=== PATIENT | female | born 1955 | race Caucasian/White ===

== ENCOUNTER → 2016-04-17 | Outpatient (CLI) | payer OTHER ==
[2016-04-17 15:51] VITALS: BP 162/80
== END ==
LOC: MHUC 10:31
PROVIDERS: ATTEND Physician Assistant
DX: J40 Bronchitis, not specified as acute or chronic (principal)
CPT/HCPCS: 99213

== ENCOUNTER → 2016-09-12 | Outpatient (CLI) | payer OTHER ==
[~2016-09-12] MED LIST: AGM500T PO; CYCL10TA45 PO; METH4TAB27 PO; ROSU10TA PO; SERT25TA PO
[2016-09-12 14:44] VITALS: BP 159/82
--- NOTE | 2016-09-12 14:44 | Urgent Care T Sheet Gen (E) ---
Intake General Temperature (Fahrenheit): 97.7 Pulse: 77 Blood Pressure Systolic: 159 Blood Pressure Diastolic: 82 Respirations: 20 SPO2: 97 History of Present Illness Initial Comments Patient presents with mid-low back pain. Must have twisted awkwardly while doing yard work over the weekend. Patient started on Sunday and worsened yesterday. Pain radiates down back into pelvis, buttocks and down the posterior legs. No weakness or numbness in the legs. Has used her TENS unit without relief. Had a massage yesterday which helped temporarily. Has used heat and ice. Nothing has given lasting relief. Allergies: Coded Allergies: No Known Drug Allergies (Unverified , 11/14/12) Home Meds Active Scripts Methylprednisolone (Medrol Dosepack)21 Tab/Pkt Tablet6 Tab PO DAILY Inflammation #1 PKT Ref 0 6 tabs po on day 1 then decrease by 1 tab daily until packet is gone Prov:MINO HARRELL 09/12/16 Cyclobenzaprine HCl (Flexeril)10 Mg [id number] Mg PO TID PRN SPASMS #30 TAB Ref 0 Prov:MINO HARRELL 09/12/16 Amoxicillin/Clavulanate Potassium (Augmentin 500mg/125mg)1 Each Tablet1 Each PO BID Infection #20 TAB Ref 0 Prov:MINO HARRELL 04/17/16 Reported Medications Sertraline HCl (Zoloft)25 Mg [id number] Mg PO DAILY 09/28/14 Rosuvastatin Calcium (Crestor)10 Mg [id number] Mg PO HS 09/28/14 Respiratory Constitutional Symptoms: No syptoms reported EENTM: No symptoms reported Respiratory: No symptoms reported Cardiovascular: No symptoms reported Musculoskeletal: Back pain Muscle pain Skin: No symptoms reported Neurological: No Numbness, No Weakness All Other Systems Reviewed Remaining Systems: All other systems reviewed with negative findings Past Pbehfzs-Vlkeqj-Lneyjq Hx Patient's Social History Alcohol Use: Denies Use Smoking Status: Current every day smoker Recent foreign travel: No Surgeries/Hospitalizations Hospitalization/Surgery Hx: Hysterectomy. Bilateral breast implants. Tonsills Respiratory Respiratory History: COPD Cardiovascular Cardiovascular History: Hypertension, Hypercholesterolemia Comment: NOT ON ANY MEDS Neuro/Muscular Neuro/Muscular History: Arthirits, Back Problems, Glaucoma, Visual impairment Reproductive System Sexually Transmitted Diseases: No Genitouinary Genitourinary History: None Gastrointestinal GI/Endocrine History: Diarrhea Diabetes Diabetes: No Integumentary Integumentary History: None Comment: skin dry Cancer History of Cancer?: No Cancer type: none Psychosocial Behavior Disorders: None Physical Exam Physical Exam General Appearance: WD/WN No apparent distress Back Exam: Muscle spasm (along the lower lumbar paraspinals.) Other (non tender over actual spine. tender over bilateral lower lumbar paraspinal muscles , bilateral SI joints, bilateral piriformis muscles. palpation of piriformis muscles causes radiating posterior leg pain. negative straight leg raise.) Skin Exam: Normal color No rashes Neurologic/Psychiatric Exam: No motor deficits (normal strength in LE's) No sensory deficits (normal sensation in LE's) Departure Urgent Care Impression Impression: Primary Impression: Back pain Qualified Code: M54.42 - Lumbago with sciatica, left side Additional Impression: Back muscle spasm Departure Disposition: 01 HOME OR SELF-CARE Condition: Stable Referrals: MELINA WEBB MD (PCP) Additional Instructions: I have started the patient on Flexeril and medrol dose pack. Continue using TENs unit as prescribed. Ice and heat as needed Return if numbness, weakness or incontinence develops No work tomorrow, note was given. Flexeril may make you drowsy, be advised Patient understands DC instructions. All questions were answered. Scripts Methylprednisolone (Medrol Dosepack)21 Tab/Pkt Tablet6 Tab PO DAILY Inflammation #1 PKT Ref 0 6 tabs po on day 1 then decrease by 1 tab daily until packet is gone Prov:MINO HARRELL 09/12/16 Cyclobenzaprine HCl (Flexeril)10 Mg [id number] Mg PO TID PRN SPASMS #30 TAB Ref 0 Prov:MINO HARRELL 09/12/16 End of report . MINO HARRELL September 12, 2016 10:45
== END ==
LOC: MHUC 10:15
PROVIDERS: ATTEND Physician Assistant
DX: M54.42 Lumbago with sciatica, left side (principal); M62.830 Muscle spasm of back
CPT/HCPCS: 99213